=== PATIENT | male | born 1930 | race Two or more races ===

== ENCOUNTER 2020-02-29 00:48 | Emergency (ER) | payer OTHER ==
[~2020-02-29] VITALS: Ht 180.3 cm; Wt 72.6 kg
[2020-02-29] MEDS ORDERED: IV NS 0.9% 500 ML BAG IV ONE (01:00)
[2020-02-29 01:14] LABS: BASOPHILS % (AUTO) 0.7 % (0.0-2.0); EOSINOPHILS % (AUTO) 4.2 % (0.0-6.0); HEMATOCRIT 32 % (39-51); LYMPHOCYTES # (AUTO) 0.4 /CMM (0.8-4.8); LYMPHOCYTES % (AUTO) 6.3 % (20.0-44.0); MEAN CORPUSCULAR HGB CONC 34 g/dl (31.0-36.0); MEAN CORPUSCULAR VOLUME 96 fL (80-96); MONOCYTES % (AUTO) 14.1 % (2.0-12.0); NEUTROPHILS # (AUTO) 5.2 /CMM (1.8-8.9); NEUTROPHILS % (AUTO) 74.7 % (43.0-81.0); PLATELET COUNT (AUTO) 254 /CMM (150-450); RED BLOOD CELL COUNT(AUTO) 3.39 MIL/uL (4.5-6.0); WHITE BLOOD COUNT (AUTO) 6.9 K/uL (4.3-11.0)
[2020-02-29 01:22] LABS: CARBON DIOXIDE 20 mmol/L (21-32); CHLORIDE 97 mmol/L (98-107); CREATININE 2.3 mg/dL (0.6-1.3); GLUCOSE 115 mg/dL (74-106); POTASSIUM 5.1 mmol/L (3.5-5.1); SODIUM SERUM 129 mmol/L (136-145); UREA NITROGEN, BLOOD 60 mg/dL (7-18)
[2020-02-29 01:23] LABS: SERUM AMMONIA 150 umol/L (11-32)
[2020-02-29 01:29] LABS: ALANINE AMINOTRANSFERASE 22 U/L (12-78); ALBUMIN 2.4 g/dL (3.4-5.0); ALKALINE PHOSPHATASE 122 U/L (46-116); ASPARTATE AMINOTRANSFERASE 37 U/L (15-37); BILIRUBIN,DIRECT 0.3 mg/dL (0.0-0.2); BILIRUBIN,TOTAL 0.7 mg/dL (0.2-1.0); TOTAL PROTEIN, SERUM 6.2 g/dL (6.4-8.2)
--- NOTE | 2020-02-29 02:22 | NUR ---
LAB CALLED REGARDING NEGATIVE COVID RESULT.
--- NOTE | 2020-02-29 04:32 | NUR ---
Patient is resting comfortably . Breathing evenly. No distress noted. pt was repositioned in bed . warm blanket provided.. VSS. Will cont to monitor ,
--- NOTE | 2020-02-29 04:47 | NUR ---
PT BENY SAL .
--- NOTE | 2020-02-29 05:19 | NUR ---
called nadeem steiner. per monica steiner md will be assigned and call back
--- NOTE | 2020-02-29 05:36 | NUR ---
DEBO ZHANG TALKING TO DR. RAO REGARDING PT.
--- NOTE | 2020-02-29 06:23 | NUR ---
MAGDALENE FROM [facility] Mihir ONEAL MD [phone] BLS [employer] AT 7 AM PRN
--- NOTE | 2020-02-29 06:39 | NUR ---
REPORT GIVEN TO ADRYAN AT [facility]
[2020-02-29 07:07] VITALS: BP 116/66
--- NOTE | 2020-02-29 07:07 | NUR ---
REPORT GIVEN TO [facility] AT BED SIDE
== END 2020-02-29 07:20 | disposition short-term general hospital (02) ==
LOC: ER 00:49
DX: K72.90 Hepatic failure, unspecified without coma (principal); C22.8 Malignant neoplasm of liver, primary, unspecified as to type; Z20.828 Contact with and (suspected) exposure to other viral communicable diseases; R94.31 Abnormal electrocardiogram [ECG] [EKG]
CPT/HCPCS: 36415; 71045; 80048; 80076; 82140; 84484; 85025; 85730; 87081; 87426; 93005; 99285; C9803; J7040